=== PATIENT | female | born 1955 | race Caucasian/White ===

== ENCOUNTER 2016-12-14 21:37 | Emergency (ER) | payer OTHER ==
--- NOTE | 2016-12-14 22:40 | ED NURSING NOTES ---
Clinical Report - Nurses [facility] [address] [place] [address] 12/14/2016 21:38 Patient: RUBÉN KEENAN TRIAGE Triage time 2147 rapid triage done: pt bitten by own dog approx 1 hour ago. Pt has 1/2 CM lac to side of right nares, does not. bleeding controled. --21:52 Beverley Maravilla R.N. Triage time 22:22. Acuity: LEVEL 4. Chief Complaint: DOG BITE. 22:31 12/14/16. Alert. No acute distress. SEPSIS SCREEN: Sepsis Screen. Negative (no infection suspected/documented). LORETO COMA SCORE: [facility] Coma Scale: 15- eyes open spontaneously (4); best verbal response- oriented x 4 (5); best motor response- obeys commands (6). --22:31 Aisha Yen R.N. 22:23 12/14/16. BP: 126/75 taken on the left arm, while sitting. HR: 64. RR: 13. O2 saturation: 97%. Temp: 98.1 F. Pain level now: 11/13. --22:31 Aisha Yen R.N. Weight: 77.1 kg estimated. Height/Length: 66 inches Estimated. BMI: 27.4. --22:30 Aisha Yen R.N. Medications Lipitor Oral. --22:25 Aisha Yen R.N. Allergies Penicillin. --22:25 Aisha Yen R.N. Ibuprofen. --22:25 Aisha Yen R.N. Diphenhydramine. --22:26 Aisha Yen R.N. History Arrived by private vehicle. Historian: patient. Accompanied by family. Primary physician (Dr Stinson). Location of injuries: nose. This occurred (about an hour ago). Occurred at home. Circumstances: This was an "unprovoked" attack. ( Patient states "we were just sitting there and the dog bit me out of nowhere"). Animal control has not been notified. Treatment IMPROVEMENT NURSE: None. PAST MEDICAL HX: Tetanus status: unknown. Immunizations: up-to-date. SOCIAL HX: Never smoker. No alcohol use or drug use. FALL RISK ASSESSMENT: Fall risk assessment completed. No fall risk identified. NUTRITIONAL RISK ASSESSMENT: The nutritional risk assessment revealed no deficiencies. FUNCTIONAL ASSESSMENT: Functional assessment: no impairments noted. LEARNING NEEDS ASSESSMENT: The learning needs assessment revealed no barriers. SKIN INTEGRITY ASSESSMENT: Skin integrity risk assessment completed. No skin integrity risk identified. --22:31 Aisha Yen R.N. PROBLEMS: Elevated Cholesterol. --22:27 Aisha Yen R.N. ADDITIONAL SURGERIES: . Knee Surgery. R breast cyst removal. --22:27 Aisha Yen R.N. Interventions ID band on patient. To treatment room. --22:31 Aisha Yen R.N. PHYSICAL ASSESSMENT 22:31 12/14/16. Ambulatory to room. GENERAL / NEURO / PSYCH: Alert. Oriented X 4. Appears in no acute distress. RESPIRATORY: Respirations not labored. CVS: Capillary refill less than 2 seconds. EXTREMITIES: Extremities exhibit normal ROM. SKIN: Skin is warm and dry. No signs or symptoms of infection. --22:31 Aisha Yen R.N. NURSING PROGRESS NOTES 22:32 12/14/16. Two patient identifiers checked. Call light placed in reach. Bed placed in lowest position. Brakes of bed on. Patient ready for evaluation- chart flagged and notification provided. --22:32 Aisha Yen R.N. 22:48 12/14/2016 TDAP IM 0.5 mL given. (Lot#: [id number], expiration date: 05/11/2019, Hedis Review Nurse: sanofi pasteur). Given in the right deltoid. Allergies verified and confirmed 5 rights. Vaccine information statement provided to the patient. --22:48 Aisha Yen R.N. 22:45. Wound cleansed with sterile water. Wound irrigated with 500 mL sterile NS; patient tolerated procedure well. Applied clean dressing consisting of Band-Aid, following the application of antibiotic ointment (bacitracin). --23:55 Aisha Yen R.N. DISPOSITION / DISCHARGE 22:53 12/14/16. No learning barriers present. Discharge instructions provided and reviewed with the patient and spouse. Reviewed warnings. Reviewed medication(s). Treatments reviewed. Reviewed referrals. Patient and spouse verbalized understanding. Written instructions provided in Croatian. The patient was discharged home and accompanied by spouse. She left the Emergency Department ambulatory and via private vehicle. Spouse driving. --22:53 Aisha Yen R.N. 22:23 12/14/16. BP: 126/75 taken on the left arm, while sitting. HR: 64. RR: 13. O2 saturation: 97%. Temp: 98.1 F. Pain level now: 11/13. --22:53 Aisha Yen R.N. Locked/Released at 12/14/2016 23:55 by Aisha Yen R.N.
--- NOTE | 2016-12-14 22:40 | ED ORDER SUMMARY ---
..... Patient: RUBÉN KEENAN OrderSheet [facility]ly [facility] VisitID: [id number] [place] [address] 61y, F Registration Date/Time: 12/14/2016 ORDER SHEET Weight: 77.1 kg (estimated) Allergies: Penicillin, Ibuprofen, Diphenhydramine GENERAL ORDERS: Irrigate Wounds (22:37 12/14/2016 HBivens A.R.N.P.) (22:42 RMarsden R.N.) MEDICATION ORDERS: Tdap IM 0.5 mL (NOW, per protocol) (22:37 12/14/2016 HBivens A.R.N.P.) (Ack 22:42 RMarsden R.N.) (22:48 RMarsden R.N.) IV FLUIDS: ORDER SHEET NOTES: [Electronically signed by Tess HenryR.N.PYomi (23:51 12/14/2016)] [Electronically signed by Aisha Yen R.N. (23:55 12/14/2016)] [Electronically locked/signed by Aisha Yen R.N. (23:55 12/14/2016)]
--- NOTE | 2016-12-14 22:40 | ED CLINICAL REPORT ---
Clinical Report - Physicians/Mid Levels [facility] [address] [place] [address] 12/14/2016 21:38 Patient: RUBÉN KEENAN Time Seen: 2225; upon arrival, initial patient contact, initial documentation, patient care assumed. Arrived- By private vehicle. Historian- patient and spouse. HISTORY OF PRESENT ILLNESS Location of injuries- nose. Chief Complaint: DOG BITE. The injury occurred just prior to arrival. The animal reportedly appeared well, is up to date on immunizations and can be observed for ten days. Animal control has not been notified. Occurred at home. This was an "unprovoked" attack. (loving on dog). Patient approached animal. The patient has not had swelling. No difficulty breathing. Treatment CROP AND SOIL SCIENTIST- none. REVIEW OF SYSTEMS No swelling, headache or difficulty breathing. All systems otherwise negative, except as recorded above. PAST HISTORY See nurses notes. PROBLEMS: Elevated Cholesterol. --22:27 Aisha Yen R.N. ADDITIONAL SURGERIES: . Knee Surgery. R breast cyst removal. --22:27 Aisha Yen R.N. Tetanus immunization status is unknown. SOCIAL HISTORY Never smoker. No alcohol use or drug use. No recent travel. Is a local resident. FAMILY HISTORY No significant family medical history. ADDITIONAL NOTES The nursing notes have been reviewed with agreement regarding the chief complaint, HPI, ROS, PMH and patient medications and allergies. PHYSICAL EXAM Vital Signs: 12/14/2016 22:23 BP: 126/75. HR: 64. RR: 13. O2 saturation: 97%. Temp: 98.1 F. Pain level now: 11/13. Have been reviewed as normal and appear to be correct. Appearance: Alert. Oriented X3. No acute distress. Head: Head abnormal on inspection or tender. Eyes: Eyes normal inspection. ENT: Ears normal on inspection. Nose normal on inspection. Mouth normal on inspection. Nose: mild tenderness and swelling and superficial 1.0 cm laceration involving the tip of the nose (superficial lac to R side of nose, very mild bleeding, tender and contused). No abrasion or deformity over the nose. No erythema, epistaxis, septal hematoma, puncture wound or foreign body. Neck: Normal inspection. Neck non-tender. Painless ROM. Skin: Skin intact. Skin warm and dry. Normal skin color. Normal skin turgor. Extremities: Normal inspection. Pelvis stable. Extremities atraumatic. No lower extremity edema. Neuro: Oriented X 3. No motor deficit. No sensory deficit. PROGRESS AND PROCEDURES Patient and spouse counseled in person regarding the patient's stable condition and diagnosis. Differential Diagnosis: Other possible considerations: dog bite, pw, skin avulsion, fb. Above considerations are based on history and physical exam. Differential diagnosis was discussed with patient and patient's spouse. Disposition: Discharged home in good and improved condition (22:40). Condition: good and stable. CLINICAL IMPRESSION Single superficial dog bite to the nose. INSTRUCTIONS Protect wound and keep wound area clean. Soak in warm soapy water twice daily. Apply neosporin twice daily. Warnings: TETANUS: You were given a tetanus shot during your visit. Make a note for future reference. Prescription Medications: Cephalexin 500 mg: take 1 capsule orally every 12 hours for 10 days. No refill. Follow-up: Follow up with your doctor in about three days as needed and for wound check. Call for an appointment. Summary of care provided to patient and family. Understanding of the discharge instructions verbalized by patient. (Electronically signed by Tess Henry A.R.N.P. 12/14/2016 23:51)
--- NOTE | 2016-12-14 22:40 | ED ORDER SUMMARY ---
..... Patient: RUBÉN KEENAN OrderSheet [facility] VisitID: [id number] [place] [address] 61y, F Registration Date/Time: 12/14/2016 ORDER SHEET Weight: 77.1 kg (estimated) Allergies: Penicillin, Ibuprofen, Diphenhydramine GENERAL ORDERS: Irrigate Wounds (22:37 12/14/2016 HBivens A.R.N.P.) (22:42 RMarsden R.N.) MEDICATION ORDERS: Tdap IM 0.5 mL (NOW, per protocol) (22:37 12/14/2016 HBivens A.R.N.P.) (Ack 22:42 RMarsden R.N.) (22:48 RMarsden R.N.) IV FLUIDS: ORDER SHEET NOTES: [Electronically signed by Tess HenryR.N.PYomi (23:51 12/14/2016)] [Electronically signed by Aisha Yen R.N. (23:55 12/14/2016)] [Electronically locked/signed by Aisha Yen R.N. (23:55 12/14/2016)]
--- NOTE | 2016-12-14 22:40 | ED NURSING NOTES ---
Clinical Report - Nurses [facility] [address] [place] [address] 12/14/2016 21:38 Patient: RUBÉN KEENAN TRIAGE Triage time 2147 rapid triage done: pt bitten by own dog approx 1 hour ago. Pt has 1/2 CM lac to side of right nares, does not. bleeding controled. --21:52 Beverley Maravilla R.N. Triage time 22:22. Acuity: LEVEL 4. Chief Complaint: DOG BITE. 22:31 12/14/16. Alert. No acute distress. SEPSIS SCREEN: Sepsis Screen. Negative (no infection suspected/documented). LORETO COMA SCORE: [place] Coma Scale: 15- eyes open spontaneously (4); best verbal response- oriented x 4 (5); best motor response- obeys commands (6). --22:31 Aisha Yen R.N. 22:23 12/14/16. BP: 126/75 taken on the left arm, while sitting. HR: 64. RR: 13. O2 saturation: 97%. Temp: 98.1 F. Pain level now: 11/13. --22:31 Aisha Yen R.N. Weight: 77.1 kg estimated. Height/Length: 66 inches Estimated. BMI: 27.4. --22:30 Aisha Yen R.N. Medications Lipitor Oral. --22:25 Aisha Yen R.N. Allergies Penicillin. --22:25 Aisha Yen R.N. Ibuprofen. --22:25 Aisha Yen R.N. Diphenhydramine. --22:26 Aisha Yen R.N. History Arrived by private vehicle. Historian: patient. Accompanied by family. Primary physician (Dr Stinson). Location of injuries: nose. This occurred (about an hour ago). Occurred at home. Circumstances: This was an "unprovoked" attack. ( Patient states "we were just sitting there and the dog bit me out of nowhere"). Animal control has not been notified. Treatment DIRECTOR OF CAREER RESOURCES: None. PAST MEDICAL HX: Tetanus status: unknown. Immunizations: up-to-date. SOCIAL HX: Never smoker. No alcohol use or drug use. FALL RISK ASSESSMENT: Fall risk assessment completed. No fall risk identified. NUTRITIONAL RISK ASSESSMENT: The nutritional risk assessment revealed no deficiencies. FUNCTIONAL ASSESSMENT: Functional assessment: no impairments noted. LEARNING NEEDS ASSESSMENT: The learning needs assessment revealed no barriers. SKIN INTEGRITY ASSESSMENT: Skin integrity risk assessment completed. No skin integrity risk identified. --22:31 Aisha Yen R.N. PROBLEMS: Elevated Cholesterol. --22:27 Aisha Yen R.N. ADDITIONAL SURGERIES: . Knee Surgery. R breast cyst removal. --22:27 Aisha Yen R.N. Interventions ID band on patient. To treatment room. --22:31 Aisha Yen R.N. PHYSICAL ASSESSMENT 22:31 12/14/16. Ambulatory to room. GENERAL / NEURO / PSYCH: Alert. Oriented X 4. Appears in no acute distress. RESPIRATORY: Respirations not labored. CVS: Capillary refill less than 2 seconds. EXTREMITIES: Extremities exhibit normal ROM. SKIN: Skin is warm and dry. No signs or symptoms of infection. --22:31 Aisha Yen R.N. NURSING PROGRESS NOTES 22:32 12/14/16. Two patient identifiers checked. Call light placed in reach. Bed placed in lowest position. Brakes of bed on. Patient ready for evaluation- chart flagged and notification provided. --22:32 Aisha Yen R.N. 22:48 12/14/2016 TDAP IM 0.5 mL given. (Lot#: [id number], expiration date: 05/11/2019, Pediatric Dentist: sanofi pasteur). Given in the right deltoid. Allergies verified and confirmed 5 rights. Vaccine information statement provided to the patient. --22:48 Aisha Yen R.N. 22:45. Wound cleansed with sterile water. Wound irrigated with 500 mL sterile NS; patient tolerated procedure well. Applied clean dressing consisting of Band-Aid, following the application of antibiotic ointment (bacitracin). --23:55 Aisha Yen R.N. DISPOSITION / DISCHARGE 22:53 12/14/16. No learning barriers present. Discharge instructions provided and reviewed with the patient and spouse. Reviewed warnings. Reviewed medication(s). Treatments reviewed. Reviewed referrals. Patient and spouse verbalized understanding. Written instructions provided in Bulgarian. The patient was discharged home and accompanied by spouse. She left the Emergency Department ambulatory and via private vehicle. Spouse driving. --22:53 Aisha Yen R.N. 22:23 12/14/16. BP: 126/75 taken on the left arm, while sitting. HR: 64. RR: 13. O2 saturation: 97%. Temp: 98.1 F. Pain level now: 11/13. --22:53 Aisha Yen R.N. Locked/Released at 12/14/2016 23:55 by Aisha Yen R.N.
--- NOTE | 2016-12-14 22:40 | ED CLINICAL REPORT ---
Clinical Report - Physicians/Mid Levels [facility] [address] [place] [address] 12/14/2016 21:38 Patient: RUBÉN KEENAN Time Seen: 2225; upon arrival, initial patient contact, initial documentation, patient care assumed. Arrived- By private vehicle. Historian- patient and spouse. HISTORY OF PRESENT ILLNESS Location of injuries- nose. Chief Complaint: DOG BITE. The injury occurred just prior to arrival. The animal reportedly appeared well, is up to date on immunizations and can be observed for ten days. Animal control has not been notified. Occurred at home. This was an "unprovoked" attack. (loving on dog). Patient approached animal. The patient has not had swelling. No difficulty breathing. Treatment DIRECTOR EXPORT- none. REVIEW OF SYSTEMS No swelling, headache or difficulty breathing. All systems otherwise negative, except as recorded above. PAST HISTORY See nurses notes. PROBLEMS: Elevated Cholesterol. --22:27 Aisha Yen R.N. ADDITIONAL SURGERIES: . Knee Surgery. R breast cyst removal. --22:27 Aisha Yen R.N. Tetanus immunization status is unknown. SOCIAL HISTORY Never smoker. No alcohol use or drug use. No recent travel. Is a local resident. FAMILY HISTORY No significant family medical history. ADDITIONAL NOTES The nursing notes have been reviewed with agreement regarding the chief complaint, HPI, ROS, PMH and patient medications and allergies. PHYSICAL EXAM Vital Signs: 12/14/2016 22:23 BP: 126/75. HR: 64. RR: 13. O2 saturation: 97%. Temp: 98.1 F. Pain level now: 11/13. Have been reviewed as normal and appear to be correct. Appearance: Alert. Oriented X3. No acute distress. Head: Head abnormal on inspection or tender. Eyes: Eyes normal inspection. ENT: Ears normal on inspection. Nose normal on inspection. Mouth normal on inspection. Nose: mild tenderness and swelling and superficial 1.0 cm laceration involving the tip of the nose (superficial lac to R side of nose, very mild bleeding, tender and contused). No abrasion or deformity over the nose. No erythema, epistaxis, septal hematoma, puncture wound or foreign body. Neck: Normal inspection. Neck non-tender. Painless ROM. Skin: Skin intact. Skin warm and dry. Normal skin color. Normal skin turgor. Extremities: Normal inspection. Pelvis stable. Extremities atraumatic. No lower extremity edema. Neuro: Oriented X 3. No motor deficit. No sensory deficit. PROGRESS AND PROCEDURES Patient and spouse counseled in person regarding the patient's stable condition and diagnosis. Differential Diagnosis: Other possible considerations: dog bite, pw, skin avulsion, fb. Above considerations are based on history and physical exam. Differential diagnosis was discussed with patient and patient's spouse. Disposition: Discharged home in good and improved condition (22:40). Condition: good and stable. CLINICAL IMPRESSION Single superficial dog bite to the nose. INSTRUCTIONS Protect wound and keep wound area clean. Soak in warm soapy water twice daily. Apply neosporin twice daily. Warnings: TETANUS: You were given a tetanus shot during your visit. Make a note for future reference. Prescription Medications: Cephalexin 500 mg: take 1 capsule orally every 12 hours for 10 days. No refill. Follow-up: Follow up with your doctor in about three days as needed and for wound check. Call for an appointment. Summary of care provided to patient and family. Understanding of the discharge instructions verbalized by patient. (Electronically signed by Tess Henry A.R.N.P. 12/14/2016 23:51)
--- NOTE | 2016-12-14 23:56 | ED MED RECONCILIATION SUMMARY ---
Patient: RUBÉN KEENAN Medication Reconciliation Report [facility] VisitID: [id number] [address] [place] [address] 61y, F Registration Date/Time: 12/14/2016 Weight: 77.1 kg Height/Length: 66 in. BMI: 27.4 ALLERGIES: Diphenhydramine, Ibuprofen, Penicillin The patient's Home Medications are listed below: THE FOLLOWING MEDICATIONS NEED TO BE RECONCILED: Lipitor Oral The source(s) of the original Home Medication information: Not obtained. The following Medications were given to the patient in the Emergency Department: TDAP [IM] IM 0.5 mL, administered: 12/14/2016 10:48:00 PM The following Medications were prescribed to the patient: Cephalexin 500 mg: take 1 capsule orally every 12 hours for 10 days. No refill. -- Tess Henry A.R.N.P.
--- NOTE | 2016-12-14 23:56 | ED DISCHARGE INSTRUCTIONS ---
Patient: RUBÉN KEENAN General Instructions [facility] VisitID: [id number] [place] [address] 61y, F Registration Date/Time: 12/14/2016 Single superficial dog bite to the nose. INSTRUCTIONS Protect wound and keep wound area clean. Soak in warm soapy water twice daily. Apply neosporin twice daily. Warnings: TETANUS: You were given a tetanus shot during your visit. Make a note for future reference. Prescription Medications: Cephalexin 500 mg: take 1 capsule orally every 12 hours for 10 days. No refill. Follow-up: Follow up with your doctor in about three days as needed and for wound check. Call for an appointment. Summary of care provided to patient and family. Understanding of the discharge instructions verbalized by patient. ADDITIONAL INFORMATION Dog Bite If a dog has bitten you and the wound is deep enough to break the skin, an infection may occur. Therefore, you should watch for the warning signs listed below. The doctor may not close the wound completely. This is to allow fluid to drain in the event of an infection. Home Care Watch the wound for signs of infection listed below. In certain types of bites, antibiotics may be prescribed. Begin taking these as soon as possible, as directed until they are all gone. Rabies Prevention If you live in an area where rabies occurs in wild animals, the rabies virus can be passed to cats and dogs. An infected animal can pass the rabies virus to you during a bite. If ahealthy-looking pet dog has bitten you, it should be kept in a secure area for the next 10 days to watch for signs of illness. If the pet road freight brake coupler wont cooperate with you, contact the [facility] animal control department (or local law enforcement). If the animal becomes ill or dies [id number] days, contact your animal control department at once. The animal must be tested for rabies. If the animal stays healthy for the next 10 days, then there is no danger of rabies in the dog or you. Pets fully vaccinated against rabies (2 shots) are at very low risk for the infection. However, because human rabies is almost always fatal, any biting dog should be kept in confinement for 10 days as an extra precaution. If a stray dog bit you, contact the animal control department. They can provide information on capture, quarantine, and animal rabies testing. If you are unable to locate the animal that bit you in the next 2days, and if rabies exists in your region, you must be evaluated for the rabies vaccine series. Contact your doctor or return here promptly. All animal bites should be reported to the [facility] animal control department. If you were not given a form to fill out, you can report it yourself by calling. Follow Up with your doctor as advised. Most skin wounds heal within 10 days. However, an infection may occur even with proper treatment. Check your woundevery 6 hoursfor 2 days, then at least once a day for the next two days for the signs of infection listed below. Get Prompt Medical Attention if any of the following occur: Signs of infection: Spreading redness Increased pain or swelling Fever of 100.4F (38C) or higher, or as directed by your healthcare provider Colored fluid or pus draining from the wound Headache, confusion, strange behavior, or a seizure (signs of a rabies infection) Diphtheria Toxoid Adsorbed, Pertussis Vaccine, Acellular (Adsorbed), Tetanus Toxoid, Adsorbed Suspension for injection What is this medicine? DIPHTHERIA and TETANUS TOXOIDS; PERTUSSIS VACCINE (dif THEER ee uh and TET n us TOK soids; per TUS iss vak SEEN) is used to prevent diphtheria, tetanus, and pertussis infections. How should I use this medicine? This vaccine is for injection into a muscle. It is given by a health career orientation teacher. A copy of Vaccine Information Statements will be given before each vaccination. Read this sheet carefully each time. The sheet may change frequently. Talk to your engraver seals regarding the use of this vaccine in children. While the DTP vaccine may be given to children ages 6 weeks to 7 years and the Tdap vaccine may be given to children at least 10 years old, precautions do apply. What side effects may I notice from receiving this medicine? Side effects that you should report to your doctor or health career orientation teacher as soon as possible: allergic reactions like skin rash, itching or hives, swelling of the face, lips, or tongue breathing problems fever of 103 degrees F or more flu-like symptoms inconsolable crying infection pain, tingling, numbness in the hands or feet seizures swelling of arm or leg that was injected unusually weak or tired Side effects that usually do not require immediate medical attention (report these side effects to your doctor or health career orientation teacher if they continue or are bothersome): fussy, irritable loss of appetite fever of 102 degrees F or less pain, tenderness, redness, swelling, or a 'knot' at site where injected vomiting What may interact with this medicine? immune globulin medicines that suppress your immune function like adalimumab, anakinra, infliximab medicines to treat cancer medicines that treat or prevent blood clots like warfarin, enoxaparin, and dalteparin steroid medicines like prednisone or cortisone What if I miss a dose? It is important not to miss your dose. Call your doctor or health career orientation teacher if you are unable to keep an appointment. Where should I keep my medicine? This drug is given in a hospital or clinic and will not be stored at home. What should I tell my health care provider before I take this medicine? They need to know if you have any of these conditions: blood disorders like hemophilia fever or infection immune system problems neurologic disease seizures an unusual or allergic reaction to vaccines, thimerosal, latex, other medicines, foods, dyes, or preservatives or trying to get breast-feeding What should I watch for while using this medicine? See your health care provider for all shots of this vaccine as directed. To have protection from infection, you must have 3 shots of this vaccine plus boosters as needed. Tell your doctor right away if you have any serious or unusual side effects after getting this vaccine. Cephalexin Monohydrate Oral tablet What is this medicine? CEPHALEXIN (sef a PHILOMENA in) is a cephalosporin antibiotic. It is used to treat certain kinds of bacterial infections It will not work for colds, flu, or other viral infections. How should I use this medicine? Take this medicine by mouth with a full glass of water. Follow the directions on the prescription label. This medicine can be taken with or without food. Take your medicine at regular intervals. Do not take your medicine more often than directed. Take all of your medicine as directed even if you think you are better. Do not skip doses or stop your medicine early. Talk to your engraver seals regarding the use of this medicine in children. While this drug may be prescribed for selected conditions, precautions do apply. What side effects may I notice from receiving this medicine? Side effects that you should report to your doctor or health career orientation teacher as soon as possible: allergic reactions like skin rash, itching or hives, swelling of the face, lips, or tongue breathing problems pain or trouble passing urine redness, blistering, peeling or loosening of the skin, including inside the mouth severe or watery diarrhea unusually weak or tired yellowing of the eyes, skin Side effects that usually do not require medical attention (report to your doctor or health career orientation teacher if they continue or are bothersome): gas or heartburn genital or anal irritation headache joint or muscle pain nausea, vomiting What may interact with this medicine? probenecid some other antibiotics What if I miss a dose? If you miss a dose, take it as soon as you can. If it is almost time for your next dose, take only that dose. Do not take double or extra doses. There should be at least 4 to 6 hours between doses. Where should I keep my medicine? Keep out of the reach of children. Store at room temperature between 59 and 86 degrees F (15 and 30 degrees C). Throw away any unused medicine after the expiration date. What should I tell my health care provider before I take this medicine? They need to know if you have any of these conditions: kidney disease stomach or intestine problems, especially colitis an unusual or allergic reaction to cephalexin, other cephalosporins, penicillins, other antibiotics, medicines, foods, dyes or preservatives or trying to get breast-feeding What should I watch for while using this medicine? Tell your doctor or health career orientation teacher if your symptoms do not begin to improve in a few days. Do not treat diarrhea with over the counter products. Contact your doctor if you have diarrhea that lasts more than 2 days or if it is severe and watery. If you have diabetes, you may get a false-positive result for sugar in your urine. Check with your doctor or health career orientation teacher. You have been given the following additional information: Dog Bite Diphtheria Toxoid Adsorbed, Pertussis Vaccine, Acellular (Adsorbed), Tetanus Toxoid, Adsorbed Suspension for injection Cephalexin Monohydrate Oral tablet (Electronically signed by Tess Henry A.R.N.P. 12/14/2016 23:51)
--- NOTE | 2016-12-14 23:56 | ED MED RECONCILIATION SUMMARY ---
Patient: RUBÉN KEENAN Medication Reconciliation Report [facility] VisitID: [id number] [address] [place] [address] 61y, F Registration Date/Time: 12/14/2016 Weight: 77.1 kg Height/Length: 66 in. BMI: 27.4 ALLERGIES: Diphenhydramine, Ibuprofen, Penicillin The patient's Home Medications are listed below: THE FOLLOWING MEDICATIONS NEED TO BE RECONCILED: Lipitor Oral The source(s) of the original Home Medication information: Not obtained. The following Medications were given to the patient in the Emergency Department: TDAP [IM] IM 0.5 mL, administered: 12/14/2016 10:48:00 PM The following Medications were prescribed to the patient: Cephalexin 500 mg: take 1 capsule orally every 12 hours for 10 days. No refill. -- Tess Henry A.R.N.P.
--- NOTE | 2016-12-14 23:56 | ED DISCHARGE INSTRUCTIONS ---
Patient: RUBÉN KEENAN General Instructions [facility] VisitID: [id number] [place] [address] 61y, F Registration Date/Time: 12/14/2016 Single superficial dog bite to the nose. INSTRUCTIONS Protect wound and keep wound area clean. Soak in warm soapy water twice daily. Apply neosporin twice daily. Warnings: TETANUS: You were given a tetanus shot during your visit. Make a note for future reference. Prescription Medications: Cephalexin 500 mg: take 1 capsule orally every 12 hours for 10 days. No refill. Follow-up: Follow up with your doctor in about three days as needed and for wound check. Call for an appointment. Summary of care provided to patient and family. Understanding of the discharge instructions verbalized by patient. ADDITIONAL INFORMATION Dog Bite If a dog has bitten you and the wound is deep enough to break the skin, an infection may occur. Therefore, you should watch for the warning signs listed below. The doctor may not close the wound completely. This is to allow fluid to drain in the event of an infection. Home Care Watch the wound for signs of infection listed below. In certain types of bites, antibiotics may be prescribed. Begin taking these as soon as possible, as directed until they are all gone. Rabies Prevention If you live in an area where rabies occurs in wild animals, the rabies virus can be passed to cats and dogs. An infected animal can pass the rabies virus to you during a bite. If ahealthy-looking pet dog has bitten you, it should be kept in a secure area for the next 10 days to watch for signs of illness. If the pet owner professional engineer wont cooperate with you, contact the [facility] animal control department (or local law enforcement). If the animal becomes ill or dies days, contact your animal control department at once. The animal must be tested for rabies. If the animal stays healthy for the next 10 days, then there is no danger of rabies in the dog or you. Pets fully vaccinated against rabies (2 shots) are at very low risk for the infection. However, because human rabies is almost always fatal, any biting dog should be kept in confinement for 10 days as an extra precaution. If a stray dog bit you, contact the animal control department. They can provide information on capture, quarantine, and animal rabies testing. If you are unable to locate the animal that bit you in the next 2days, and if rabies exists in your region, you must be evaluated for the rabies vaccine series. Contact your doctor or return here promptly. All animal bites should be reported to the [facility] animal control department. If you were not given a form to fill out, you can report it yourself by calling. Follow Up with your doctor as advised. Most skin wounds heal within 10 days. However, an infection may occur even with proper treatment. Check your woundevery 6 hoursfor 2 days, then at least once a day for the next two days for the signs of infection listed below. Get Prompt Medical Attention if any of the following occur: Signs of infection: Spreading redness Increased pain or swelling Fever of 100.4F (38C) or higher, or as directed by your healthcare provider Colored fluid or pus draining from the wound Headache, confusion, strange behavior, or a seizure (signs of a rabies infection) Diphtheria Toxoid Adsorbed, Pertussis Vaccine, Acellular (Adsorbed), Tetanus Toxoid, Adsorbed Suspension for injection What is this medicine? DIPHTHERIA and TETANUS TOXOIDS; PERTUSSIS VACCINE (dif THEER ee uh and TET n us TOK soids; per TUS iss vak SEEN) is used to prevent diphtheria, tetanus, and pertussis infections. How should I use this medicine? This vaccine is for injection into a muscle. It is given by a health primary care md. A copy of Vaccine Information Statements will be given before each vaccination. Read this sheet carefully each time. The sheet may change frequently. Talk to your superintendent logging regarding the use of this vaccine in children. While the DTP vaccine may be given to children ages 6 weeks to 7 years and the Tdap vaccine may be given to children at least 10 years old, precautions do apply. What side effects may I notice from receiving this medicine? Side effects that you should report to your doctor or health primary care md as soon as possible: allergic reactions like skin rash, itching or hives, swelling of the face, lips, or tongue breathing problems fever of 103 degrees F or more flu-like symptoms inconsolable crying infection pain, tingling, numbness in the hands or feet seizures swelling of arm or leg that was injected unusually weak or tired Side effects that usually do not require immediate medical attention (report these side effects to your doctor or health primary care md if they continue or are bothersome): fussy, irritable loss of appetite fever of 102 degrees F or less pain, tenderness, redness, swelling, or a 'knot' at site where injected vomiting What may interact with this medicine? immune globulin medicines that suppress your immune function like adalimumab, anakinra, infliximab medicines to treat cancer medicines that treat or prevent blood clots like warfarin, enoxaparin, and dalteparin steroid medicines like prednisone or cortisone What if I miss a dose? It is important not to miss your dose. Call your doctor or health primary care md if you are unable to keep an appointment. Where should I keep my medicine? This drug is given in a hospital or clinic and will not be stored at home. What should I tell my health care provider before I take this medicine? They need to know if you have any of these conditions: blood disorders like hemophilia fever or infection immune system problems neurologic disease seizures an unusual or allergic reaction to vaccines, thimerosal, latex, other medicines, foods, dyes, or preservatives or trying to get breast-feeding What should I watch for while using this medicine? See your health care provider for all shots of this vaccine as directed. To have protection from infection, you must have 3 shots of this vaccine plus boosters as needed. Tell your doctor right away if you have any serious or unusual side effects after getting this vaccine. Cephalexin Monohydrate Oral tablet What is this medicine? CEPHALEXIN (sef a PHILOMENA in) is a cephalosporin antibiotic. It is used to treat certain kinds of bacterial infections It will not work for colds, flu, or other viral infections. How should I use this medicine? Take this medicine by mouth with a full glass of water. Follow the directions on the prescription label. This medicine can be taken with or without food. Take your medicine at regular intervals. Do not take your medicine more often than directed. Take all of your medicine as directed even if you think you are better. Do not skip doses or stop your medicine early. Talk to your superintendent logging regarding the use of this medicine in children. While this drug may be prescribed for selected conditions, precautions do apply. What side effects may I notice from receiving this medicine? Side effects that you should report to your doctor or health primary care md as soon as possible: allergic reactions like skin rash, itching or hives, swelling of the face, lips, or tongue breathing problems pain or trouble passing urine redness, blistering, peeling or loosening of the skin, including inside the mouth severe or watery diarrhea unusually weak or tired yellowing of the eyes, skin Side effects that usually do not require medical attention (report to your doctor or health primary care md if they continue or are bothersome): gas or heartburn genital or anal irritation headache joint or muscle pain nausea, vomiting What may interact with this medicine? probenecid some other antibiotics What if I miss a dose? If you miss a dose, take it as soon as you can. If it is almost time for your next dose, take only that dose. Do not take double or extra doses. There should be at least 4 to 6 hours between doses. Where should I keep my medicine? Keep out of the reach of children. Store at room temperature between 59 and 86 degrees F (15 and 30 degrees C). Throw away any unused medicine after the expiration date. What should I tell my health care provider before I take this medicine? They need to know if you have any of these conditions: kidney disease stomach or intestine problems, especially colitis an unusual or allergic reaction to cephalexin, other cephalosporins, penicillins, other antibiotics, medicines, foods, dyes or preservatives or trying to get breast-feeding What should I watch for while using this medicine? Tell your doctor or health primary care md if your symptoms do not begin to improve in a few days. Do not treat diarrhea with over the counter products. Contact your doctor if you have diarrhea that lasts more than 2 days or if it is severe and watery. If you have diabetes, you may get a false-positive result for sugar in your urine. Check with your doctor or health primary care md. You have been given the following additional information: Dog Bite Diphtheria Toxoid Adsorbed, Pertussis Vaccine, Acellular (Adsorbed), Tetanus Toxoid, Adsorbed Suspension for injection Cephalexin Monohydrate Oral tablet (Electronically signed by Tess Henry A.R.N.P. 12/14/2016 23:51)
--- NOTE | 2016-12-14 23:56 | ED MAR SUMMARY ---
..... Medication Administration Record [facility] [address] [place] [address] Patient: RUBÉN KEENAN Visit ID: [id number] 61y, F Weight: 77.1 kg Height/Length: 66 in BMI: 27.4 ALLERGIES: Diphenhydramine, Ibuprofen, Penicillin Given 22:48 12/14/2016 Aisha Yen R.N. Medication Administered: TDAP [IM], Dose: 0.5 mL IM. Medication Ordered: Tdap IM 0.5 mL (NOW, per protocol).
--- NOTE | 2016-12-14 23:56 | ED MAR SUMMARY ---
..... Medication Administration Record [facility] [address] [place] [address] Patient: RUBÉN KEENAN Visit ID: [id number] 61y, F Weight: 77.1 kg Height/Length: 66 in BMI: 27.4 ALLERGIES: Diphenhydramine, Ibuprofen, Penicillin Given 22:48 12/14/2016 Aisha Yen R.N. Medication Administered: TDAP [IM], Dose: 0.5 mL IM. Medication Ordered: Tdap IM 0.5 mL (NOW, per protocol).
== END 2016-12-14 22:53 | disposition home or self-care (01) ==
LOC: ED SRH 21:37
DX: S00.37XA Other superficial bite of nose, initial encounter (principal); W54.0XXA Bitten by dog, initial encounter; Y93.89 Activity, other specified; Y99.9 Unspecified external cause status; Y92.009 Unspecified place in unspecified non-institutional (private) residence as the place of occurrence of the external cause; Z23 Encounter for immunization